=== PATIENT | male | born 1970 | race Caucasian/White ===

== ENCOUNTER 2020-07-06 10:15 | Emergency (ER) | payer MEDICAID ==
[~2020-07-06] VITALS: Ht 180.3 cm; Wt 89.0 kg
[~2020-07-06 10:15] MED LIST: ACET-1008 PO; DOXY-243 PO; IBUP-1985 PO; PANT40TA54 PO
[2020-07-06 10:30] VITALS: BP 97/64
== END 2020-07-06 13:36 | disposition home or self-care (01) ==
LOC: ER 10:17
DX: L02.414 Cutaneous abscess of left upper limb (principal); I10 Essential (primary) hypertension; G89.29 Other chronic pain; F31.9 Bipolar disorder, unspecified; F12.90 Cannabis use, unspecified, uncomplicated; Z86.19 Personal history of other infectious and parasitic diseases; Z98.890 Other specified postprocedural states; Z72.89 Other problems related to lifestyle; Z79.2 Long term (current) use of antibiotics; Z79.899 Other long term (current) drug therapy
CPT/HCPCS: 99281; 99282

== ENCOUNTER 2025-01-27 08:37 | Emergency (ER) | payer MEDICAID ==
[~2025-01-27] VITALS: Ht 180.3 cm; Wt 76.0 kg
[~2025-01-27 08:37] MED LIST changes: -ACET-1008 PO; +CLIN-224 PO; -DOXY-243 PO; -IBUP-1985 PO; -PANT40TA54 PO
[2025-01-27 08:46] VITALS: BP 125/83; PULSE 63; RESP 15; O2SAT 99
--- NOTE | 2025-01-27 09:28 | RADIOLOGY REPORT ---
CLINICAL INDICATION: RIGHT Shoulder Pain TECHNIQUE: 3 radiographic views of the right shoulder were obtained. Comparison: None FINDINGS/IMPRESSION: There is no evidence of acute fracture or dislocation. Chronic right clavicle fracture. The visualized joint space is well maintained. The alignment is anatomical. There is no radiopaque foreign body.
--- NOTE | 2025-01-27 09:31 | Physician Documentation ---
History of Present Illness ~ General Chief Complaint: See Chief Complaint Stated Complaint: ALL OVER PAIN Time Seen by MD: 09:11 Primary Medical Doctor: None History of Present Illness Initial Comments This is a 54-year-old male who presents reporting pain all over patient reports pain to bilateral feet and right shoulder. Review of records indicate patient was seen at [facility] today for the same concern and discharged. Patient reports multiple areas of chronic pain. Patient reports history of bilateral lower extremity cellulitis. Medication Reconciliation Allergies: Coded Allergies: No Known Allergies (Unverified , 01/27/25) Scheduled Clindamycin HCL* (Clindamycin HCL*), 1 CAP PO Q6H Past Medical History Past Medical History: Hypertension, Hepatitis C, Chronic Pain, Chronic Back Pain, Bipolar Past Surgical History: orthopedic surgeries Patient History: Patient reports no known family medical history. Alcohol Use: Occasionally Drug Use: marijuana Lives with: Alone Lives In: Home Review of Systems ROS As stated above in the HPI, otherwise all systems are reviewed and negative. Physical Exam Physical Exam Vital Signs: Temperature: 97.3, Source: Oral, Heart Rate: 63, Respiratory Rate: 15, BP: 125/83, Pulse Oximetry: 99, Weight: 76.000 Oxygen Flow Rate: 0 Physical Exam VITALS: Reviewed and as above. GENERAL: Alert, nontoxic appearing, no apparent distress. RESPIRATORY: No increased work of breathing, no respiratory distress, speaking in full clear sentences CHEST: Nontender to palpation CV: Brisk capillary refill bilateral lower extremities, pedal pulses intact bilaterally BACK: Nontender to palpation MUSCULOSKELETAL: Bilateral shoulders nontender to palpation, moving all extremities equally SKIN: Warm and dry no erythema, the skin of bilateral anterior shins have scattered excoriations, skin of aspects of bilateral large toes superficial skin wounds appear to be ruptured blisters without evidence of infection or surrounding erythema. NEURO: GCS 15, oriented x4 PSYCH: Agitated and hostile Progress Results/Orders Results/Orders Vital Signs 01/27/25 01/27/25 08:46 09:43 Temp 97.3 97.3 Pulse 63 Resp 15 B/P (MAP) 125/83 Pulse Ox 99 O2 Flow Rate 0 EKG/XRAY/CT/US/VASC/MRI Bone/Soft Tissue X-Ray (Ext.) : Additional Comment Exam: SHOULDER, COMPLETE (MIN 2 VWS) CLINICAL INDICATION: RIGHT Shoulder Pain TECHNIQUE: 3 radiographic views of the right shoulder were obtained. Comparison: None FINDINGS/IMPRESSION: There is no evidence of acute fracture or dislocation. Chronic right clavicle fracture. The visualized joint space is well maintained. The alignment is anatomical. There is no radiopaque foreign body. Electronically Signed by:ITALIA BAY MD Date & Time: 01/27/25925 Dictated by: ITALIA BAY MD Dictation date and time: 01/27/25925 I have reviewed and agree with the radiology report. I have reviewed and interpreted the imaging as: No fracture or dislocation Medical Decision Making Findings This 54-year-old male patient presents reporting all over pain specifically worse in his right shoulder though physical exam did not demonstrate tenderness to palpation of right shoulder, additionally patient reported multiple concerns that did not have physical exam findings including a lump on his neck without physical exam finding of mass to neck, cellulitis to legs without evidence of erythema, swelling, induration, or other evidence of cellulitis, and chest wall pain without tenderness to palpation of chest wall. Records indicate patient was seen at [facility] just prior to arrival this facility and per nursing notes patient had to be escorted off [facility] after discharge due to refusing to leave. Patient was hostile and aggressive immediately on my entry into the room, I have no reason to believe a medical emergency exists this time. Patient had benign physical exam and is appropriate for outpatient follow up. Differential Diagnosis Malingering, shoulder fracture, cellulitis, congestive heart failure, abscess, homeless, hungry, rib fractures, wound infection, laceration Departure Time of Disposition: 09:35 Disposition: 01 HOME / SELF CARE / HOMELESS Impression: Primary Impression: Wound of foot Condition: Improved Discharge Instructions: Foot Care, Adult Additional Instructions: The wounds to your feet do not appear infected though I recommend changing your socks frequently, consider utilizing findings on these wounds until they heal. While you have many chronic concerns there appears to be no medical emergency at this time, additionally you were seen at another emergency department per records and medicated for pain and provided food and water. I recommend following up with [facility] for your chronic concerns. Please follow up with your primary care provider or the [facility] in the next few days. Please return to the emergency department for any new or worsening concerning symptoms. Referrals: NO PRIMARY CARE PROVIDER (PCP) Education Educated: Patient Educated regarding: diagnosis, treatment, prognosis, need for follow up Signature Scribe Signature: No scribe Attestation: The note accurately reflects work and decisions made by me.FERCHO Kim 01/28/25 19:44 DULCE TOSCANO Jan 27, 2025 09:31
[2025-01-27 09:43] VITALS: TEMP 97.3
== END 2025-01-27 09:47 | disposition home or self-care (01) ==
LOC: ER 08:37
DX: S90.921A Unspecified superficial injury of right foot, initial encounter (principal); M25.511 Pain in right shoulder; F31.9 Bipolar disorder, unspecified; F12.90 Cannabis use, unspecified, uncomplicated; I10 Essential (primary) hypertension; Z86.19 Personal history of other infectious and parasitic diseases; Z72.89 Other problems related to lifestyle; Z60.2 Problems related to living alone; X58.XXXA Exposure to other specified factors, initial encounter; Y93.89 Activity, other specified; Y92.89 Other specified places as the place of occurrence of the external cause; Y99.8 Other external cause status
CPT/HCPCS: 73030; 99283

== ENCOUNTER 2025-01-27 14:18 | Emergency (ER) | payer MEDICAID ==
[~2025-01-27] VITALS: Ht 180.3 cm; Wt 75.4 kg
[2025-01-27 14:50] VITALS: BP 121/87; PULSE 80; RESP 16; O2SAT 100
--- NOTE | 2025-01-27 15:21 | Physician Documentation ---
History of Present Illness ~ General Chief Complaint: Multiple Medical Complaints Stated Complaint: HEAT RELATED Time Seen by MD: 14:56 Primary Medical Doctor: None History of Present Illness Initial Comments This 54-year-old male who was recently seen here in the ED earlier today for similar symptoms reports wanting to be re-evaluated for left shoulder pain and dehydration. Medication Reconciliation Allergies: Coded Allergies: No Known Allergies (Unverified , 01/27/25) Scheduled Clindamycin HCL* (Clindamycin HCL*), 1 CAP PO Q6H Past Medical History Past Medical History: Hypertension, Hepatitis C, Chronic Pain, Chronic Back P ain, Bipolar Past Surgical History: orthopedic surgeries Patient History: Patient reports no known family medical history. Alcohol Use: Occasionally Drug Use: marijuana Lives with: Alone Lives In: Home Review of Systems All Other Systems at this time: Reviewed and Negative ROS Scribed for Blake Benavides Engineering Supervisor by Blake Benavides - TEA . 01/27/25 15:17 Physical Exam Physical Exam Vital Signs: Temperature: 98.7, Source: Temporal, Heart Rate: 80, Respiratory Rate: 16, BP: 121/87, Pulse Oximetry: 100, Weight: 75.400 Oxygen Flow Rate: 0 Physical Exam General: Alert, no apparent distress. HEENT: PERRL, EOMI, no injection, moist mucous membranes. Neck: Full range of motion. Respiratory: Lungs clear, no respiratory distress. Chest: No accessory muscle use. Cardiovascular: Regular rate and rhythm, no murmurs. Gastrointestinal: Soft, nontender, nondistended. Bowels sounds present. Extremities: Normal range of motion, no deformity. Neurologic: Oriented x4. Psychiatric: Normal mood and affect. Skin: Normal color, warm and dry. No edema, no ecchymosis. Progress Results/Orders Results/Orders Orders - BLAKE BENAVIDES CONCHE OPERATOR General Nursing Order (01/27/25 ) Recheck Vital Signs (01/27/25 15:23) Vital Signs 01/27/25 14:50 Temp 98.7 Pulse 80 Resp 16 B/P (MAP) 121/87 Pulse Ox 100 O2 Flow Rate 0 Medical Decision Making Findings Previous x-ray done today indicated that there was no evidence of acute fracture however there was a chronic right clavicle fracture Patient was provided fluid hydration orally while in the ED. this patient does not present acutely ill. Departure Disposition: 01 HOME / SELF CARE / HOMELESS Impression: Primary Impression: Shoulder pain Additional Impression: Homeless Condition: Stable Discharge Instructions: Food Insecurity Information Referrals: NO PRIMARY CARE PROVIDER (PCP) Education Educated: Patient Signature Scribe Signature: g Attestation: Scribed for Blake Benavides Engineering Supervisor by Blake Pratt NP . 01/27/25 15:39 BLAKE BENAVIDES NP Jan 27, 2025 15:21
[2025-01-27 15:47] VITALS: TEMP 98.7
== END 2025-01-27 15:48 | disposition home or self-care (01) ==
LOC: ER 14:19
DX: M25.512 Pain in left shoulder (principal); I10 Essential (primary) hypertension; F31.9 Bipolar disorder, unspecified; F12.90 Cannabis use, unspecified, uncomplicated; Z59.00 Homelessness unspecified; Z72.89 Other problems related to lifestyle; Z60.2 Problems related to living alone
CPT/HCPCS: 99282